=== PATIENT | male | born 1945 | race Caucasian/White ===

== ENCOUNTER 2016-06-09 09:39 | Outpatient (CLI) | payer MEDICARE ==
--- NOTE | 2016-06-09 11:14 | RAD ---
PA AND LATERAL CHEST: History: Hemoptysis. Comparison: 03-31-15, 03-23-16 FINDINGS: Heart size is within normal limits. Pleural and parenchymal scarring in the right lung apex are stab le. Slight prominence to the left hilar region is also unchanged. No new process noted. IMPRESSION: Stable overall exam. POS: [facility]
== END 2016-06-09 09:40 | disposition home or self-care (01) ==
LOC: MADRAD 09:39
PROVIDERS: ATTEND Obstetrics & Gynecology
DX: R04.2 Hemoptysis (principal)
CPT/HCPCS: 71020

== ENCOUNTER 2017-08-01 10:49 | Outpatient (CLI) | payer MEDICARE ==
--- NOTE | 2017-08-01 11:37 | RAD ---
CHEST 2 VIEWS: COMPARISON: 06/09/16. HISTORY: Hemoptysis. FINDINGS: Normal cardiac silhouette. The pulmonary vessels and hilum are normal. Costophrenic angles are lisette r. Chronic changes in the right upper lobe. Mild hyperinflation. No pneumothorax. No osseous abno rmalities. IMPRESSION: 1. Hyperinflation. 2. Chronic changes in the right upper lobe. 3. Given patient's history, further evaluation with chest CT may be beneficial. POS: MICHAEL
== END 2017-08-01 10:50 | disposition home or self-care (01) ==
LOC: MADRAD 10:49
PROVIDERS: ATTEND Obstetrics & Gynecology
DX: R50.9 Fever, unspecified (principal); J98.11 Atelectasis
CPT/HCPCS: 71046

== ENCOUNTER 2019-05-04 09:38 | Outpatient (CLI) | payer MEDICARE ==
[2019-05-04 10:16] LABS: ALT (SGPT) 14 U/L (8-55); AST (SGOT) 13 U/L (5-34); Albumin 4.2 g/dL (3.4-4.8); Alkaline Phosphatase 84 U/L (40-110); Anion Gap 14 mmol/L (10-20); BUN (Urea Nitrogen) 15 mg/dL (8.4-25.7); Bilirubin, Total 0.5 mg/dL (0.2-1.2); Calc. Creatinine Clearance 0 mL/min (70-130); Calcium 9.5 mg/dL (7.8-10.44); Carbon Dioxide 29 mmol/L (23-31); Chloride 101 mmol/L (98-107); Estimated GFR-MDRD 66; Globulin 3.3 g/dL (2.4-3.5); Glucose 95 mg/dL (83-110); Potassium 3.4 mmol/L (3.5-5.1); Protein, Total 7.5 g/dL (5.8-8.1); Sodium 141 mmol/L (136-145)
[2019-05-04 10:26] LABS: #Basophils 0.1 thou/uL (0.0-0.2); #Eosinphils 0.2 thou/uL (0.0-0.7); #Lymphocytes 1.7 thou/uL (1.20-3.40); #Monocytes 1.1 thou/uL (0.11-0.59); #Neutrophils 6.3 thou/uL (1.40-6.50); %Basophils 1.4 % (0.0-1.0); %Eosinophils 1.8 % (0.0-10.0); %Lymphocytes 18.1 % (21.0-51.0); %Monocytes 11.2 % (0.0-10.0); %Neutrophils 67.5 % (42.0-75.0); Hemoglobin 14.8 g/dL (14.0-18.0); Hypochromia SLIGHT = 6-15 cells (100X) (0-5/hpf); MDiff Complete? YES; Mean Corpuscular HGB CONC 29.3 g/dL (32.0-36.0); Mean Corpuscular Hemoglobin 25.7 pg (27.0-31.0); Mean Corpuscular Volume 87.8 fL (78.0-98.0); Mean Platelet Volume 6.9 fL (7.4-10.4); Platelet Count 270 thou/uL (130-400); Platelet Morphology Comment Appears Adequate; RBC Distribution Width 17.3 % (11.5-14.5); Red Blood Cell (RBC) Count 5.76 mill/uL (4.70-6.10); White Blood Cell (WBC) Count 9.4 thou/uL (4.8-10.8)
--- NOTE | 2019-05-04 12:06 | RAD ---
PA AND LATERAL VIEWS CHEST: Date: 05/04/2019 HISTORY: COPD. Chronic pulmonary histoplasmosis. COMPARISON: 12/26/2018. FINDINGS: The heart size is normal. The aorta is tortuous. Chronic parenchymal changes are again present. No lo bar consolidation, pneumothoraces, or pleural effusions are seen. IMPRESSION: No acute process. POS: [place]
[2019-05-05 13:49] LABS: Reference Lab Name LABCORP
[2019-05-05 13:50] LABS: Ref Lab Test Ordered ITRACONAZOLE
== END 2019-05-04 09:39 | disposition home or self-care (01) ==
LOC: MADLAB 09:38
PROVIDERS: ATTEND Internal Medicine Infectious Disease
DX: B39.1 Chronic pulmonary histoplasmosis capsulati (principal); J44.9 Chronic obstructive pulmonary disease, unspecified; B39.2 Pulmonary histoplasmosis capsulati, unspecified
CPT/HCPCS: 36415; 71046; 80053; 85025

== ENCOUNTER 2020-03-17 11:04 | Outpatient (CLI) | payer MEDICARE ==
--- NOTE | 2020-03-17 11:26 | RAD ---
TWO VIEW CHEST: HISTORY: Pulmonary histoplasmosis. COMPARISON: 03/06/2020. FINDINGS: Hyperexpansion. Bolus changes in the right lower lobe stable. Scarring, stranding, and retraction r ight upper lobe stable. Left lung remains clear. Heart size is normal. Osseous structures unremark able. IMPRESSION: Stable chest findings. POS: [facility]
[2020-03-17 11:51] LABS: #Basophils 0.2 thou/uL (0.0-0.2); #Eosinphils 0.2 thou/uL (0.0-0.7); #Monocytes 1.1 thou/uL (0.11-0.59); %Basophils 1.2 % (0.0-1.0); %Eosinophils 1.4 % (0.0-10.0); %Monocytes 7.9 % (0.0-10.0); %Neutrophils 74.5 % (42.0-75.0); Hemoglobin 14.5 g/dL (14.0-18.0); Mean Corpuscular HGB CONC 31.9 g/dL (32.0-36.0); Mean Corpuscular Hemoglobin 29.3 pg (27.0-31.0); Mean Corpuscular Volume 91.7 fL (78.0-98.0); Mean Platelet Volume 6.6 fL (7.4-10.4); Platelet Count 310 thou/uL (130-400); RBC Distribution Width 12.5 % (11.5-14.5); Red Blood Cell (RBC) Count 4.95 mill/uL (4.70-6.10); White Blood Cell (WBC) Count 13.4 thou/uL (4.8-10.8)
[2020-03-17 12:08] LABS: ALT (SGPT) 11 U/L (8-55); AST (SGOT) 10 U/L (5-34); Albumin 3.8 g/dL (3.4-4.8); Alkaline Phosphatase 68 U/L (40-110); Bilirubin, Direct 0.2 mg/dL (0.1-0.3); Bilirubin, Total 0.4 mg/dL (0.2-1.2); CRP (Inflammatory) Less than 0.50 mg/dL (= or < 0.5); Protein, Total 6.5 g/dL (5.8-8.1)
== END 2020-03-17 11:05 | disposition home or self-care (01) ==
LOC: MADRAD 11:04
PROVIDERS: ATTEND Internal Medicine Infectious Disease
DX: B39.2 Pulmonary histoplasmosis capsulati, unspecified (principal)
CPT/HCPCS: 36415; 71046; 80076; 85025; 86140

== ENCOUNTER 2022-09-20 09:48 | Emergency (ER) | payer MEDICARE ==
[2022-09-20] MEDS ORDERED: Ipratropium/Albuterol 3 ML NEB ONE (09:59)
[2022-09-20 10:15] LABS: #Basophils 0.1 thou/uL (0.0-0.2); #Eosinphils 0.1 thou/uL (0.0-0.7); #Lymphocytes 1.1 thou/uL (1.20-3.40); #Monocytes 1.1 thou/uL (0.11-0.59); #Neutrophils 14.3 thou/uL (1.40-6.50); %Basophils 0.9 % (0.0-1.0); %Eosinophils 0.4 % (0.0-10.0); %Lymphocytes 6.6 % (21.0-51.0); %Monocytes 6.8 % (0.0-10.0); %Neutrophils 85.4 % (42.0-75.0); Hematocrit 44.4 % (42.0-52.0); Hemoglobin 14.2 g/dL (14.0-18.0); Mean Corpuscular Hemoglobin 30.4 pg (27.0-31.0); Platelet Count 249 10x3/uL (130-400); RBC Distribution Width 12.8 % (11.5-14.5); Red Blood Cell (RBC) Count 4.67 mill/uL (4.70-6.10); White Blood Cell (WBC) Count 16.8 10x3/uL (4.8-10.8)
[2022-09-20] MEDS ORDERED: methylPREDNISolone Sod Succ/PF 125 MG/2 ML VIAL ONE (10:16)
[2022-09-20 10:29] LABS: ALT (SGPT) 14 U/L (8-55); AST (SGOT) 16 U/L (5-34); Albumin 4.3 g/dL (3.4-4.8); Alkaline Phosphatase 74 U/L (40-110); Anion Gap 15 mmol/L (10-20); BUN (Urea Nitrogen) 11 mg/dL (8.4-25.7); Bilirubin, Total 0.9 mg/dL (0.2-1.2); Calc. Creatinine Clearance 0 mL/min (70-130); Calcium 9.8 mg/dL (7.8-10.44); Carbon Dioxide 33 mmol/L (23-31); Chloride 98 mmol/L (98-107); Estimated GFR 90; Globulin 3.4 g/dL (2.4-3.5); Glucose 104 mg/dL (83-110); Magnesium 1.7 mg/dL (1.6-2.6); Potassium 3.8 mmol/L (3.5-5.1); Protein, Total 7.7 g/dL (5.8-8.1); Sodium 142 mmol/L (136-145)
[2022-09-20 10:32] LABS: Base Excess-Venous 5.5 mmol/L (-2.0 to 3.0); Bicarbonate (HCO3v) 36.2 mmol/L (22.0-28.0); CO2 Tension (PvCO2) 77.4 mmHg (42.0-51.0); Chloride 99 mmol/L (98-107); Hemoglobin - Calc 17.6 g/dL (14.0-18.0); Potassium 3.7 mmol/L (3.5-5.1); Sodium 141 mmol/L (138-145); T. Carbon Dioxide 38.5 mmol/L (22.0-28.0); Troponin I 0.018 ng/mL (< 0.028); vO2 Saturation-calc 55.2 % (60.0-85.0)
[2022-09-20] MEDS ORDERED: Cefepime 2 GM VIAL ONE (11:32)
[2022-09-20] MEDS ORDERED: Sodium Chloride 0.9% 100 ML ONE (11:32)
== END 2022-09-20 12:51 | disposition home or self-care (01) ==
LOC: MADERS 09:48
DX: J44.1 Chronic obstructive pulmonary disease with (acute) exacerbation (principal); R35.0 Frequency of micturition; I10 Essential (primary) hypertension; F17.210 Nicotine dependence, cigarettes, uncomplicated; Z79.899 Other long term (current) drug therapy
CPT/HCPCS: 51702; 71045; 80053; 82330; 82803; 83605; 83735; 83880; 84484; 85025; 87040; 93005; 94760; 96365; 96375; J0692; J2930; J3490; J7611; J7620

== ENCOUNTER 2023-01-20 09:51 | Emergency (ER) | payer MEDICARE ==
[2023-01-20 12:23] LABS: Clarity Turbid (Clear); Leukocyte Large (Negative); Nitrite Positive (Negative); pH, Urine 8.5 (5.0-9.0)
[2023-01-20 12:24] LABS: Glucose, Urine (Dipstick) Negative (Negative); Protein, Urine (Dipstick) 100 mg/dL (Neg-Trace)
[2023-01-20 12:25] LABS: Bilirubin Negative (Negative); Ketone, Urine Trace mg/dL (Negative); Urobilinogen 0.2 mg/dL (Less than 2)
[2023-01-20 12:26] LABS: Bacteria/HPF 2+ HPF (None Seen); Blood, Urine Moderate (Negative); CAUTI Indications for Culture Pelvic or flank pain; Squamous Epithelial 0-3 HPF (0-3); WBC/HPF Greater than 50 HPF (0-3)
[2023-01-20 12:29] LABS: Urine Culture Reflex Yes Yes
[2023-01-20] MEDS ORDERED: LevoFLOXacin 500 MG TAB ONE (12:52)
[2023-01-20] MEDS ORDERED: LevoFLOXacin 250 MG TAB ONE (12:52)
== END 2023-01-20 13:00 | disposition home or self-care (01) ==
LOC: MADERS 09:51
DX: T83.098A Other mechanical complication of other urinary catheter, initial encounter (principal); N39.0 Urinary tract infection, site not specified; I10 Essential (primary) hypertension; J44.9 Chronic obstructive pulmonary disease, unspecified; F17.210 Nicotine dependence, cigarettes, uncomplicated; Z79.899 Other long term (current) drug therapy
CPT/HCPCS: 36415; 51798; 81001; 87077; 87086; 87186; 99283

== ENCOUNTER 2023-02-26 10:36 | Emergency (ER) | payer MEDICARE ==
[2023-02-26 12:05] LABS: Bilirubin Negative (Negative); Blood, Urine Small (Negative); Clarity Cloudy (Clear); Glucose, Urine (Dipstick) Negative (Negative); Ketone, Urine Negative (Negative); Leukocyte Large (Negative); Nitrite Negative (Negative); Protein, Urine (Dipstick) 100 mg/dL (Neg-Trace); Specific Gravity, Urine 1.015 (1.005-1.030); Urobilinogen 0.2 mg/dL (Less than 2)
[2023-02-26 12:06] LABS: pH, Urine Greater/Equal 9.0 (5.0-9.0)
[2023-02-26 12:12] LABS: Bacteria/HPF 3+ HPF (None Seen); Squamous Epithelial 0-3 HPF (0-3)
[2023-02-26 12:13] LABS: Mucous/LPF 1+ LPF (<2+)
[2023-02-26] MEDS ORDERED: Ciprofloxacin 500 MG TAB ONE (13:03)
[2023-02-26] MEDS ORDERED: Acetaminophen 500 MG TAB ONE (13:04)
[2023-02-26] MEDS ORDERED: Nitrofurantoin Monohyd/M-Cryst 100 MG CAP ONE (13:04)
== END 2023-02-26 13:30 | disposition home or self-care (01) ==
LOC: MADERS 10:36
DX: N39.0 Urinary tract infection, site not specified (principal); F17.210 Nicotine dependence, cigarettes, uncomplicated; I10 Essential (primary) hypertension; J44.9 Chronic obstructive pulmonary disease, unspecified
CPT/HCPCS: 51798; 81001; 87077; 87086; 87186; 99283